=== PATIENT | male | born 1955 | race Asian ===

== ENCOUNTER 2018-09-03 10:32 | Day surgery (SDC) | payer MEDICAID ==
[~2018-09-03] VITALS: Ht 165.1 cm; Wt 69.1 kg
[~2018-09-03 10:32] MED LIST: ACET1TAB25 PO; ALLO100T15 PO; ATOR20TA66 PO; CALC667C5 PO; CLON0.3T2 PO; COLC0.6T69 PO; DOCU100C38 PO; OMEP-50 PO; PRED5TAB PO
[2018-09-03] MEDS ORDERED: normal saline 1000ml 1,000 ML IV SCH (10:50)
[2018-09-03 11:27] LABS: BASOPHILS % (AUTO) 0.5 % (0-1); EOSINOPHILS # (AUTO) 0.3 X10'3 (0-0.9); EOSINOPHILS % (AUTO) 2.9 % (0-6); HEMATOCRIT 44.9 % (42.0-52.0); HEMOGLOBIN 14.9 g/dl (14.0-17.9); LYMPHOCYTES # (AUTO) 0.9 X10'3 (1.1-4.8); LYMPHOCYTES % (AUTO) 9.4 % (21-51); MEAN CORPUSCULAR HEMOGLOBIN 32.1 PG (27.0-31.0); MEAN CORPUSCULAR HGB CONC 33.2 % (33.0-36.5); MEAN CORPUSCULAR VOLUME 96.5 FL (78-98); MEAN PLATELET VOLUME 9.9 FL (7.4-10.4); MONOCYTES # (AUTO) 0.3 X10'3 (0-0.9); NEUTROPHILS # (AUTO) 8.4 X10'3 (1.8-7.7); NEUTROPHILS % (AUTO) 84.2 % (42-75); PLATELET COUNT 183 X10'3 (140-440); RED BLOOD COUNT 4.65 X10'6 (4.70-6.10); RED CELL DISTRIBUTION WIDTH 13.3 % (11.5-14.5)
[2018-09-03 11:38] LABS: ALBUMIN 4.4 G/DL (3.4-5.0); ANION GAP 14 (8-16); BLOOD UREA NITROGEN 49 MG/DL (7-18); BUN/CREATININE RATIO 7.2 (5.4-32.0); CALCIUM 8.8 MG/DL (8.5-10.1); CHLORIDE 100 MMOL/L (99-107); CREATININE 6.81 MG/DL (0.60-1.10); GLUCOSE 88 MG/DL (70-104); POTASSIUM 5.4 MMOL/L (3.5-5.1); SODIUM 137 MMOL/L (135-145); TOTAL CARBON DIOXIDE 23.4 MMOL/L (24-32); eGFR 8 ML/MIN
[2018-09-03 12:18] VITALS: BP 186/87
[2018-09-03] MEDS ORDERED: heparin 1,000 units/ml 10ml inj ICATH ONE (13:45)
[2018-09-03] MEDS ORDERED: midazolam 2 mg/2 ml injection IV PRN (13:45)
[2018-09-03] MEDS ORDERED: fentaNYL/PF 50MCG/1 ML 2ML syringe IV PRN (13:45)
[2018-09-03] MEDS ORDERED: fentaNYL/PF 50MCG/1 ML 2ML syringe ONE (13:52)
[2018-09-03] MEDS ORDERED: midazolam 2 mg/2 ml injection ONE (13:52)
[2018-09-03] MEDS ORDERED: heparin 1,000unit/ml 10ml vial 10 ML ONE (13:52)
[2018-09-03 14:42] VITALS: BP 178/92
[2018-09-03 14:58] VITALS: BP 152/76
[2018-09-03 15:12] VITALS: BP 127/68
[2018-09-03 15:27] VITALS: BP 138/74
[2018-09-03 15:43] VITALS: BP 136/81
== END 2018-09-03 15:55 | disposition home or self-care (01) ==
LOC: SSTAY O 10:32
PROVIDERS: ATTEND Radiology Diagnostic Radiology
DX: I12.0 Hypertensive chronic kidney disease with stage 5 chronic kidney disease or end stage renal disease (principal); N18.6 End stage renal disease; K21.9 Gastro-esophageal reflux disease without esophagitis; Z99.2 Dependence on renal dialysis; Z79.891 Long term (current) use of opiate analgesic; Z87.891 Personal history of nicotine dependence; Z98.890 Other specified postprocedural states; Z79.899 Other long term (current) drug therapy
CPT/HCPCS: 36415; 36558; 76937; 77001; 80048; 85025; 99152; 99153; A9270; C1750; C1894; J1644; J2250; J3010; J7030; A4620

== ENCOUNTER 2019-10-11 10:55 | Day surgery (SDC) | payer MEDICAID ==
[~2019-10-11] VITALS: Ht 165.1 cm; Wt 69.1 kg
[~2019-10-11 10:55] MED LIST changes: +ACET-3068 PO; +LEVO750T46 PO; +METR-159 PO
[2019-10-11] MEDS ORDERED: normal saline 1000ml 1,000 ML IV SCH (11:50)
[2019-10-11] MEDS ORDERED: HYDR-3686 PO (11:53)
[2019-10-11 11:57] LABS: BASOPHILS % (AUTO) 0.5 % (0-1); EOSINOPHILS # (AUTO) 0.1 X10'3 (0-0.9); EOSINOPHILS % (AUTO) 1.4 % (0-6); HEMATOCRIT 34.5 % (42.0-52.0); HEMOGLOBIN 11.5 g/dl (14.0-17.9); LYMPHOCYTES # (AUTO) 1.2 X10'3 (1.1-4.8); LYMPHOCYTES % (AUTO) 12.5 % (21-51); MEAN CORPUSCULAR HGB CONC 33.3 g/dL (33.0-36.5); MEAN CORPUSCULAR VOLUME 90.1 FL (78-98); MEAN PLATELET VOLUME 8.4 FL (7.4-10.4); NEUTROPHILS # (AUTO) 7.2 X10'3 (1.8-7.7); NEUTROPHILS % (AUTO) 75.6 % (42-75); PLATELET COUNT 247 X10'3 (140-440); RED BLOOD COUNT 3.83 X10'6 (4.70-6.10); RED CELL DISTRIBUTION WIDTH 16.5 % (11.5-14.5); WHITE BLOOD COUNT 9.6 X10'3 (4.5-11.0)
[2019-10-11 12:04] LABS: ALBUMIN 2.6 G/DL (3.4-5.0); ANION GAP 10 (8-16); CALCIUM 9.9 MG/DL (8.5-10.1); CHLORIDE 98 MMOL/L (99-107); GLUCOSE 92 MG/DL (70-104); POTASSIUM 5.2 MMOL/L (3.5-5.1); SODIUM 136 MMOL/L (135-145); TOTAL CARBON DIOXIDE 28.2 MMOL/L (24-32)
[2019-10-11 12:09] LABS: BLOOD UREA NITROGEN 38 MG/DL (7-18); BUN/CREATININE RATIO 4.9 (5.4-32.0); CREATININE 7.74 MG/DL (0.60-1.10)
[2019-10-11 12:10] LABS: eGFR 7 ML/MIN
[2019-10-11 12:14] VITALS: BP 184/95
[2019-10-11] MEDS ORDERED: LIDOcaine 1%/PF 5ML 10 MG/ML VIAL ONE (16:52)
[2019-10-11] MEDS ORDERED: fentaNYL/PF 50MCG/1 ML 2ML syringe ONE (17:01)
[2019-10-11] MEDS ORDERED: midazolam 2 mg/2 ml injection ONE (17:01)
[2019-10-11] MEDS ORDERED: heparin 1,000unit/ml 10ml vial 10 ML ONE (17:02)
[2019-10-11] MEDS ORDERED: ceFAZolin 1GM/D5W- ADD-VANTAGE 50 ML IV SCH (17:15)
[2019-10-11] MEDS ORDERED: cefazolin/dext.iso 2gm/100ml 100 ML IV ONE (17:20)
[2019-10-11 17:30] VITALS: BP 182/102
[2019-10-11 17:45] VITALS: BP 173/93
[2019-10-11 18:00] VITALS: BP 173/87
--- NOTE | 2019-10-11 18:03 | NUR ---
Problems reprioritized. Patient report given, questions answered & plan of care reviewed with Jeanie BAUTISTA.
[2019-10-11 18:15] VITALS: BP 167/92
[2019-10-11 18:30] VITALS: BP 152/84
== END 2019-10-11 18:45 | disposition home or self-care (01) ==
LOC: SSTAY O 10:55
PROVIDERS: ATTEND Radiology Diagnostic Radiology
DX: T82.49XA Other complication of vascular dialysis catheter, initial encounter (principal); Z91.018 Allergy to other foods; Z88.8 Allergy status to other drugs, medicaments and biological substances; Z79.899 Other long term (current) drug therapy; Y83.8 Other surgical procedures as the cause of abnormal reaction of the patient, or of later complication, without mention of misadventure at the time of the procedure; Y92.9 Unspecified place or not applicable
CPT/HCPCS: 36415; 36581; 80048; 85025; 99152; C1750; C1769; J1644; J2250; J3010; J7030; A9270

== ENCOUNTER 2019-10-22 11:13 | Day surgery (SDC) | payer MEDICAID ==
[~2019-10-22 11:13] MED LIST changes: -COLC0.6T69 PO; -DOCU100C38 PO; +HYDR-3686 PO; -PRED5TAB PO
[2019-10-22 11:35] VITALS: BP 185/92
[2019-10-22] MEDS ORDERED: ceFAZolin inj. 2,000 MG in dextrose 5%-water 100 ML IV ONE (11:45)
[2019-10-22 11:48] VITALS: BP 204/95
[2019-10-22] MEDS ORDERED: LIDOcaine 1%/PF 5ML 10 MG/ML VIAL ONE (11:53)
[2019-10-22 12:20] VITALS: BP 190/96
[2019-10-22 13:52] VITALS: BP 204/95
== END 2019-10-22 12:40 | disposition home or self-care (01) ==
LOC: SSTAY O 11:13
PROVIDERS: ATTEND Radiology Vascular & Interventional Radiology
DX: T82.898A Other specified complication of vascular prosthetic devices, implants and grafts, initial encounter (principal); I12.9 Hypertensive chronic kidney disease with stage 1 through stage 4 chronic kidney disease, or unspecified chronic kidney disease; N18.9 Chronic kidney disease, unspecified; Z98.890 Other specified postprocedural states; Z91.09 Other allergy status, other than to drugs and biological substances; Z91.018 Allergy to other foods; Z79.899 Other long term (current) drug therapy; Y83.8 Other surgical procedures as the cause of abnormal reaction of the patient, or of later complication, without mention of misadventure at the time of the procedure; Y92.89 Other specified places as the place of occurrence of the external cause
CPT/HCPCS: 36589; J0690; J7070

== ENCOUNTER 2019-10-24 06:12 | Day surgery (SDC) | payer MEDICAID ==
[~2019-10-24] VITALS: Ht 165.1 cm; Wt 71.1 kg
[~2019-10-24 06:12] MED LIST changes: -ACET-3068 PO; -LEVO750T46 PO; -METR-159 PO
[2019-10-24] MEDS ORDERED: normal saline 1000ml 1,000 ML IV PRN (06:35)
[2019-10-24 07:02] VITALS: BP 219/107
[2019-10-24] MEDS ORDERED: heparin 1,000 units/ml 10ml inj ICATH ONE (08:30)
[2019-10-24] MEDS ORDERED: fentaNYL/PF 50MCG/1 ML 2ML syringe IV PRN (08:30)
[2019-10-24] MEDS ORDERED: LIDOcaine 1%/PF 5ML 10 MG/ML VIAL SQ ONE (08:30)
[2019-10-24] MEDS ORDERED: midazolam 2 mg/2 ml injection IV PRN (08:30)
[2019-10-24] MEDS ORDERED: heparin 1,000unit/ml 10ml vial 10 ML ONE (08:32)
[2019-10-24] MEDS ORDERED: LIDOcaine 1%/PF 5ML 10 MG/ML VIAL ONE (08:32)
[2019-10-24] MEDS ORDERED: fentaNYL/PF 50MCG/1 ML 2ML syringe ONE ×2 (08:32→08:54)
[2019-10-24] MEDS ORDERED: midazolam 2 mg/2 ml injection ONE ×2 (08:32→08:54)
[2019-10-24 09:22] VITALS: BP 199/95
[2019-10-24] MEDS ORDERED: HYDROcodone/acetaminophen 5mg/325mg tablet PO ONE (09:25)
[2019-10-24 09:37] VITALS: BP 198/95
[2019-10-24 09:52] VITALS: BP 194/94
[2019-10-24 10:07] VITALS: BP 187/99
== END 2019-10-24 10:22 | disposition home or self-care (01) ==
LOC: SSTAY O 06:12
PROVIDERS: ATTEND Radiology Vascular & Interventional Radiology
DX: T82.7XXA Infection and inflammatory reaction due to other cardiac and vascular devices, implants and grafts, initial encounter (principal); I12.9 Hypertensive chronic kidney disease with stage 1 through stage 4 chronic kidney disease, or unspecified chronic kidney disease; N18.9 Chronic kidney disease, unspecified; Z91.018 Allergy to other foods; Z88.8 Allergy status to other drugs, medicaments and biological substances; Z98.890 Other specified postprocedural states; Z79.899 Other long term (current) drug therapy; Y83.8 Other surgical procedures as the cause of abnormal reaction of the patient, or of later complication, without mention of misadventure at the time of the procedure; Y92.89 Other specified places as the place of occurrence of the external cause
CPT/HCPCS: 36558; 76937; 77001; 99152; 99153; J1644; J2250; J3010; J7030

== ENCOUNTER 2021-03-16 10:52 | Day surgery (SDC) | payer MEDICAID ==
[~2021-03-16] VITALS: Ht 165.1 cm; Wt 74.9 kg
[~2021-03-16 10:52] MED LIST changes: -CLON0.3T2 PO; +CLON0.3T36 PO
[2021-03-16] MEDS ORDERED: normal saline 1000ml 1,000 ML IV PRN (11:20)
[2021-03-16] MEDS ORDERED: cefazolin/dext.iso 2gm/100ml 100 ML IV ONE (11:20)
[2021-03-16 11:41] VITALS: BP 128/71
[2021-03-16] MEDS ORDERED: AMLO10TA13 PO (12:21)
[2021-03-16] MEDS ORDERED: ONDA-103 PO (12:21)
[2021-03-16] MEDS ORDERED: midazolam 1 mg/ML 2ml injection ONE (13:42)
[2021-03-16] MEDS ORDERED: fentaNYL/PF 50MCG/1 ML 2ML syringe ONE (13:42)
[2021-03-16] MEDS ORDERED: LIDOcaine 1%/PF 5ML 10 MG/ML VIAL ONE (13:46)
[2021-03-16] MEDS ORDERED: heparin 1,000unit/ml 10ml vial 10 ML ONE (13:47)
[2021-03-16 15:03] VITALS: BP 150/85
[2021-03-16 15:18] VITALS: BP 153/84
[2021-03-16 15:32] VITALS: BP 139/89
== END 2021-03-16 15:55 | disposition home or self-care (01) ==
LOC: SSTAY O 10:52
PROVIDERS: ATTEND Radiology Vascular & Interventional Radiology
DX: T82.42XA Displacement of vascular dialysis catheter, initial encounter (principal); N18.9 Chronic kidney disease, unspecified; Z91.018 Allergy to other foods; Z91.09 Other allergy status, other than to drugs and biological substances; Z79.899 Other long term (current) drug therapy; Y83.8 Other surgical procedures as the cause of abnormal reaction of the patient, or of later complication, without mention of misadventure at the time of the procedure; Y92.89 Other specified places as the place of occurrence of the external cause
CPT/HCPCS: 36558; 36589; 76937; 77001; 99152; 99153; C1750; C1769; C1894; J1644; J2250; J3010; A9270